=== PATIENT | female | born 1995 | race Caucasian/White ===

== ENCOUNTER 2021-12-07 05:21 | Emergency (ER) | payer OTHER ==
[~2021-12-07] VITALS: Ht 162.6 cm; Wt 75.7 kg
[2021-12-07 05:21] VITALS: BP 121/86
[2021-12-07] MEDS ORDERED: MUPIROCIN 2% OINT 22 GM TUBE TOP ONE (07:20)
[2021-12-07] MEDS ORDERED: MUPI30CR TOP (07:24)
== END 2021-12-07 08:06 | disposition home or self-care (01) ==
LOC: M ED 05:21
DX: L03.211 Cellulitis of face (principal); Z88.5 Allergy status to narcotic agent